=== PATIENT | male | born 1990 | race Caucasian/White ===

== ENCOUNTER → 2017-11-06 | Outpatient (CLI) | payer OTHER ==
--- NOTE | 2017-11-06 22:55 | MR ---
EXAMINATION TYPE: MR lumbar spine wo con DATE OF EXAM: 11/06/2017 COMPARISON: CT lumbar spine June 23, 2015 HISTORY: Low back pain, intervertebral disc degeneration, generalized muscle weakness, HNP L4-L5, and left lower extremity radiculopathy per order. Pain into hip for 8 years per patient. TECHNIQUE: Multiplanar, multisequence imaging of the lumbar spine is performed without IV contrast. FINDINGS: Sagittal images of the lumbar spine show vertebral body heights and alignment to appear sat isfactory. There is disc desiccation L4-L5 level. There is mild disc space narrowing at L3-L4 and L4 -L5 levels with posterior disc herniations mildly effacing the anterior thecal sac on the sagittal im ages. Increased signal posteriorly consistent with annular tear is noted at these levels. The conus m edullaris and somewhat high at roughly T11-T12 disc space level. No suspicious signal or clumping of lumbosacral nerve roots is seen. The bone marrow signal intensity is within normal limits. No suspic ious spurring is noted. Axial images show the T12-L1, L1-L2, and L2-L3 levels all to appear within normal limits. Axial images at the L3-L4 level broad-based left paracentral disc protrusion effacing the anterior th ecal sac, bilateral neural foramina are patent on axial image 13. Axial images at L4-L5 level shows broad-based left paracentral disc protrusion effacing anterior thec al sac. Bilateral neural foramina are patent Axial images at L5-S1 level are felt within normal limits. No suspicious retroperitoneal findings are seen. IMPRESSION: Degenerative changes L3-L4 and L4-L5 level as detailed above.
== END | disposition home or self-care (01) ==
LOC: RADMRIMAIN 21:23
PROVIDERS: ATTEND Orthopaedic Surgery Orthopaedic Surgery of the Spine
DX: M47.26 Other spondylosis with radiculopathy, lumbar region (principal)
CPT/HCPCS: 72148

== ENCOUNTER → 2017-12-27 | Outpatient (CLI) | payer OTHER ==
[2017-12-25 16:17] VITALS: BMI 26.4
[2017-12-27 13:45] VITALS: BP 106/58; PULSE 58; RESP 18
--- NOTE | 2017-12-27 14:03 | P.CONS ---
History of Present Illness - Reason for Consult Consult date: 12/27/17 - Chief Complaint Lower back and left leg pain - History of Present Illness This is a 27-year-old gentleman with history of chronic lower back pain that started since he was in high school however about 2 months ago he fell on his back and exacerbated his back pain that started to radiate down the left leg to the left foot with numbness and tingling in the left foot on the lateral aspect of the foot. He also feels some weakness in the left leg but he denies any bowel or bladder dysfunction. This pain gets worse by sitting for too long as for driving and with walking. The patient is getting physical therapy at this point but with no good results. He was seen by a neurosurgeon who recommended injections in his back. His lumbar spine MRI showed left paracentral disc protrusion at the L4 5 and L3 4 levels with neural foraminal stenosis. Review of Systems Cardiovascular: Denies chest pain, Denies shortness of breath Respiratory: Denies cough Gastrointestinal: Denies abdominal pain, Denies diarrhea, Denies nausea, Denies vomiting Musculoskeletal: Reports as per HPI Neurological: Reports as per HPI Past Medical History Past Medical History: No Reported History Additional Past Medical History / Comment(s): pain lower back radiating left side, radiating pain and N/T left leg,steroids Oct 2017 History of Any Multi-Drug Resistant Organisms: None Reported Past Surgical History: Orthopedic Surgery Additional Past Surgical History / Comment(s): hydrocele Past Anesthesia/Blood Transfusion Reactions: No Reported Reaction Smoking Status: Current every day smoker - Past Family History Mother Family Medical History: No Reported History Medications and Allergies Home Medications Medication Instructions Recorded Confirmed Type FLUoxetine HCL [PROzac] 10 mg PO QAM 12/25/17 12/27/17 History [place] Carbonate 300 mg PO TID 12/25/17 12/27/17 History chlordiazePOXIDE HCl [Librium] 10 mg PO BID 12/25/17 12/27/17 History chlorproMAZINE HCL [Thorazine] 50 mg PO TID 12/25/17 12/27/17 History traZODone HCL 50 - 100 mg PO HS PRN 12/25/17 12/27/17 History Allergies Allergy/AdvReac Type Severity Reaction Status Date / Time No Known Allergies Allergy Verified 12/27/17 13:34 Physical Exam Vitals: Vital Signs Pulse Resp BP Pulse Ox 12/27/17 13:36 58 L 18 106/58 97 - Constitutional General appearance: average body habitus - EENT Eyes: PERRLA - Respiratory Respiratory: bilateral: CTA - Cardiovascular Rhythm: regular Heart sounds: normal: S1, S2 - Integumentary Integumentary: no calor, no cellulitis, no cyanotic, no decreased turgor, no flushed, no jaundiced, no normal, no normal turgor, no pale, no rash, no ulcer - Neurologic Neuro exam of the lower extremities showed increased muscle strength in the left leg for knee flexion and extension and ankle flexion and extension to 4 out of 5. He has normal and symmetrical deep tendon reflexes bilaterally. He has mild tenderness in the lumbar paravertebral area on the right side. Straight leg raising test positive on the left side. Neurologic: CNII-XII intact - Musculoskeletal He has antalgic gait - Psychiatric Psychiatric: A&O x's 3, appropriate affect, intact judgment & insight Assessment and Plan Plan: This is a 27-year-old gentleman with what seems to be left lumbar radiculopathy with mild weakness in the left lower extremity and paresthesia. The patient has disc bulging at L3 4 and L4 5 levels with neural foraminal stenosis as per the last MRI he had on his lumbar spine. He failed to respond to physical therapy. I think he might benefit from getting lumbar epidural steroid injection at the L4 5 level in the left paramedian approach under fluoroscopic guidance. The procedure was explained to the patient and his questions were answered. Of note the patient uses medical marijuana twice a day for his diagnosis of bipolar disease.
== END ==
LOC: PNWHC3 13:23
PROVIDERS: ATTEND Anesthesiology
DX: G89.29 Other chronic pain (principal); M54.5 Low back pain; M99.73 Connective tissue and disc stenosis of intervertebral foramina of lumbar region; M51.26 Other intervertebral disc displacement, lumbar region; F31.9 Bipolar disorder, unspecified; F12.929 Cannabis use, unspecified with intoxication, unspecified; Z98.890 Other specified postprocedural states; F17.200 Nicotine dependence, unspecified, uncomplicated; Z79.899 Other long term (current) drug therapy
CPT/HCPCS: 99211

== ENCOUNTER → 2018-01-17 | Day surgery (SDC) | payer OTHER ==
[2018-01-11 15:25] VITALS: BMI 26.4
[~2018-01-17] MED LIST: SODIUM CHLORIDE 0.9% 500 ML 500 ML IV ONE; SODIUM CHLORIDE 0.9% 500 ML 500 ML IV SCH
[2018-01-17 07:31] VITALS: TEMP 98.1
--- NOTE | 2018-01-17 09:08 | P.PCN ---
Date of Procedure: 01/17/18 Surgeon: Ruap Holloway Pathology: none sent Condition: stable Disposition: PACU Description of Procedure: PREOPERATIVE DIAGNOSIS: 1-Lumbar radiculopathy POSTOPERATIVE DIAGNOSIS: 1-Lumbar radiculopathy. PROCEDURE 1. Lumbar epidural steroid injection under fluoroscopic guidance at the L4-5 level in the left paramedian approach. 2. Lumbar epidurogram. ANESTHESIA: Local with 1% lidocaine; and IV moderate conscious sedation with Versed and fentanyl EBL: Minimal PROCEDURE INDICATION: The patient with low back pain and radiculitis symptoms unresponsive to conservative treatment. Fluoroscopy was used to optimize visualization of the needle placement and to maximize safety. PROCEDURE DESCRIPTION / TECHNIQUE: The patient was seen and identified in the preoperative area. Risks, benefits , complications including but not limited to infections ,bleeding ,allergic reaction to the medications ,nerve damage and not complete pain relief , and alternatives were discussed with the patient. The patient agreed to proceed with the procedure and signed the consent. IV was started, and vital signs were stable. Patient was taken to the OR and time out was completed. The patient was placed in the prone position on procedure table and a pillow was placed under the abdomen to reduce lumbar lordosis. The lumbosacral area was prepped and draped in the usual sterile fashion with ChloraPrep.Patient was closely monitored during the procedure. Conscious sedation was used during the procedure to decrease patients anxiety. Vital signs were monitered during the entire procedure. Using anterior-posterior fluoroscopy, the L4-5 interlaminar space was identified and the skin over this site was marked and then infiltrated with 1% lidocaine subcutaneously. Subsequently, a 20-gauge Tuohy epidural needle was inserted and advanced toward the epidural space in the left paramedian approach using the Loss of resistance to air technique and guided by AP and lateral fluoroscopy. The correct needle position in the epidural space was verified with the injection of 1 mL of the water soluble contrast dye Omnipaque 180 contrast and observing an excellent epidurogram with the epidural spread of the dye, after negative aspiration for blood and CSF and in the absence of paresthesias. Again after negative aspiration, a 8 ml mixture containing 80 mg of Kenalog and 5 ml of preservative free Normal Saline, and 2 ml of preservative free ropivacaine 0.5% solution was injected and a washout of epidurogram was seen. Needle was withdrawn intact, skin was cleansed, and bandages were applied. patient tolerated procedure well and was transferred to PACU in stable condition. COMPLICATIONS: None
[2018-01-17 10:12] VITALS: BP 130/75; PULSE 47; RESP 20
--- NOTE | 2018-01-17 13:31 | FL ---
Fluoroscopy HISTORY: Pain 7 seconds fluoroscopy time supplied to the referring clinician. 2 intraoperative C-arm images docume nt the procedure. See dictated report from anesthesia.
== END ==
LOC: ORPAIN 07:09
PROVIDERS: ATTEND Anesthesiology
DX: M54.16 Radiculopathy, lumbar region (principal)
CPT/HCPCS: 62323; J2250; J3301; J3010; Q9966

== ENCOUNTER 2018-02-06 07:03 | Day surgery (SDC) | payer OTHER ==
[2018-02-02 12:26] VITALS: BMI 26.4
[~2018-02-06 07:03] MED LIST changes: -SODIUM CHLORIDE 0.9% 500 ML 500 ML IV ONE
[2018-02-06 08:02] VITALS: RESP 16; TEMP 98.1
[2018-02-06] MEDS ORDERED: LACTATED RINGERS 1,000 ML IV ONE (08:08)
--- NOTE | 2018-02-06 09:13 | P.PCN ---
Pathology: none sent Condition: stable Disposition: PACU Description of Procedure: PREOPERATIVE DIAGNOSIS: 1-Lumbar radiculopathy POSTOPERATIVE DIAGNOSIS: 1-Lumbar radiculopathy. PROCEDURE 1. Lumbar epidural steroid injection under fluoroscopic guidance at the L4-5 level in the left paramedian approach. 2. Lumbar epidurogram. ANESTHESIA: Local with 1% lidocaine; and IV moderate conscious sedation with Versed and fentanyl EBL: Minimal PROCEDURE INDICATION: The patient with low back pain and radiculitis symptoms unresponsive to conservative treatment. Fluoroscopy was used to optimize visualization of the needle placement and to maximize safety. PROCEDURE DESCRIPTION / TECHNIQUE: The patient was seen and identified in the preoperative area. Risks, benefits , complications including but not limited to infections ,bleeding ,allergic reaction to the medications ,nerve damage and not complete pain relief , and alternatives were discussed with the patient. The patient agreed to proceed with the procedure and signed the consent. IV was started, and vital signs were stable. Patient was taken to the OR and time out was completed. The patient was placed in the prone position on procedure table and a pillow was placed under the abdomen to reduce lumbar lordosis. The lumbosacral area was prepped and draped in the usual sterile fashion with ChloraPrep.Patient was closely monitored during the procedure. Conscious sedation was used during the procedure to decrease patients anxiety. Vital signs were monitered during the entire procedure. Using anterior-posterior fluoroscopy, the L4-5 interlaminar space was identified and the skin over this site was marked and then infiltrated with 1% lidocaine subcutaneously. Subsequently, a 20-gauge Tuohy epidural needle was inserted and advanced toward the epidural space in the left paramedian approach using the Loss of resistance to air technique and guided by AP and lateral fluoroscopy. The correct needle position in the epidural space was verified with the injection of 1 mL of the water soluble contrast dye Omnipaque 180 contrast and observing an excellent epidurogram with the epidural spread of the dye, after negative aspiration for blood and CSF and in the absence of paresthesias. Again after negative aspiration, a 8 ml mixture containing 40 mg of Kenalog and 5 ml of preservative free Normal Saline, and 2 ml of preservative free ropivacaine 0.5% solution was injected and a washout of epidurogram was seen. Needle was withdrawn intact, skin was cleansed, and bandages were applied. patient tolerated procedure well and was transferred to PACU in stable condition. COMPLICATIONS: None
[2018-02-06] MEDS ORDERED: IV FLUID CONTINUATION 600 ML IV ONE (09:17)
[2018-02-06 09:35] VITALS: BP 107/65; PULSE 56
--- NOTE | 2018-02-06 10:35 | FL ---
Fluoroscopy INDICATION: Pain FINDINGS: Fluoroscopy time: 5 seconds. Images obtained: 2. IMPRESSIONS: 1. Documentation of fluoroscopy.
== END 2018-02-06 09:47 | disposition home or self-care (01) ==
LOC: ORPAIN 07:03
PROVIDERS: ATTEND Anesthesiology
DX: M54.16 Radiculopathy, lumbar region (principal)
CPT/HCPCS: 62323; J2250; J3301; J3010; Q9966

== ENCOUNTER 2018-03-29 08:22 | Day surgery (SDC) | payer OTHER ==
[2018-03-28 09:42] VITALS: BMI 25.7
[2018-03-29 09:04] VITALS: TEMP 97.9
[2018-03-29] MEDS ORDERED: LIDOCAINE 1% 20 ML VIAL (10MG/ML) FOR IV START INTRADERMA ONE (09:04)
[2018-03-29] MEDS ORDERED: LACTATED RINGERS 1,000 ML IV ONE (09:04)
--- NOTE | 2018-03-29 10:13 | P.PCN ---
Date of Procedure: 03/29/18 Procedure(s) Performed: PREOPERATIVE DIAGNOSIS : 1- Lumbar spondylosis with Facet Arthropathy without myelopathy . 2- Lumber degenerative disc disease. 3-lumbar radiculopathy POSTOPERATIVE DIAGNOSIS: 1- Lumbar spondylosis with Facet Arthropathy without myelopathy . 2- Lumber degenerative disc disease 3-lumbar radiculopathy. PROCEDURE: Diagnostic bilateral L3 -4 , L4 -5 , and L5-S1 medial branch block under fluoroscopy ANESTHESIA: Local with Ropivacain 0.5 % 6 ml , moderate sedation with intravenous Versed 2 mg and Fentanyl 100 mcg. EBL: Minimal COMPLICATION: None. IV FLUIDS: 100 mL of normal saline. PROCEDURE INDICATION: Chronic low back pain secondary to Facet arthropathy unresponsive to conservative treatment. PROCEDURE DESCRIPTION: the patient was seen and identified in the preop holding area , risks and benefits and possible complications of the procedure and alternative were discussed with the patient, and the patient agreed to proceed with the procedure and signed the consent IV was started and vital signs monitored during the procedure and fluoroscopy was used to maximize the benefit and accuracy of the needle placement, and sedation was given to decrease patient anxiety, patient was taken to the procedure room and placed in prone position vital signs monitored in the back prepped with chlorhexidine X3 then under strict sterile technique using a right oblique fluoroscopy ,the junction of the transverse process and the superior articulating process of the right L3- 4 , L4- 5, and L5-S1 vertebra which corresponding to the fluoroscopy image of the eye of the Evans dog on the block side for the medial branches and subsequently , after local infiltration of skin and subcu tissuies with Ropivacaine 0.5 % , one mL at each level , then 25-gauge Quincke-type needles , 3 needle was used , each one of them placed at the junction of the base of the transverse process and the superior articular process at the appropriate level, and the needle was advanced until the periosteum contacted, needle placement confirmed with AP oblique and lateral view and after appropriate needle placement confirmed, and after negative aspiration for heme and CSF and there was no paresthesia 1-1/2 mL of Ropivacaine 0.5% mixed with 20 mg Depo-Medrol , then half mL injected at each level after negative aspiration the needle subsequently removed and the same procedure repeated for the left side at left side at L3-4, L4- 5 and L5-S1 levels. At the end of the procedure and the needles removed and a bandage applied after the skin was cleaned the cleaning solution patient taken to recovery room in stable condition and monitors in the recovery room for 20-30 minutes and discharged home in stable condition after discharge criteria met and patient will follow up with the pain clinic in 2-4 weeks
[2018-03-29] MEDS ORDERED: IV FLUID CONTINUATION 1,000 ML IV ONE (10:20)
[2018-03-29 10:29] VITALS: RESP 18
[2018-03-29 10:40] VITALS: BP 133/76; PULSE 42
--- NOTE | 2018-03-29 12:43 | FL ---
EXAMINATION TYPE: FL guided pain mgmt statistic DATE OF EXAM: 03/29/2018 FLUOROSCOPY Fluoroscopy time of 8 seconds was used during bilateral lumbar facet blocks. 4 image/s document/s th e procedure.
== END 2018-03-29 10:55 | disposition home or self-care (01) ==
LOC: ORPAIN 08:22
PROVIDERS: ATTEND Specialist
DX: G89.29 Other chronic pain (principal); M47.26 Other spondylosis with radiculopathy, lumbar region; M51.16 Intervertebral disc disorders with radiculopathy, lumbar region
CPT/HCPCS: 64493; 64494; 64495; J2250; J1030; J3010; 99152

== ENCOUNTER 2018-04-12 08:12 | Day surgery (SDC) | payer OTHER ==
[2018-04-11 09:32] VITALS: BMI 25.0
[2018-04-12 09:21] VITALS: TEMP 97.7
[2018-04-12] MEDS ORDERED: LACTATED RINGERS 1,000 ML IV ONE (09:32)
--- NOTE | 2018-04-12 10:34 | P.PCN ---
Date of Procedure: 04/12/18 Surgeon: Rupa Holloway Pathology: none sent Condition: stable Disposition: PACU Description of Procedure: PREOPERATIVE DIAGNOSIS : 1- Lumbar spondylosis with Facet Arthropathy without myelopathy . 2- Lumber degenerative disc disease POSTOPERATIVE DIAGNOSIS: 1- Lumbar spondylosis with Facet Arthropathy without myelopathy . 2- Lumber degenerative disc disease PROCEDURE: Diagnostic bilateral L3 -4 , L4 -5 , and L5-S1 medial branch block under fluoroscopy ANESTHESIA: Local with 1% lidocaine; IV moderate conscious sedation with Versed 2 mg . EBL: Negligible COMPLICATION: None. PROCEDURE INDICATION: Chronic low back pain secondary to Facet arthropathy unresponsive to conservative treatment. PROCEDURE DESCRIPTION: the patient was seen and identified in the preop holding area , risks and benefits and possible complications of the procedure and alternatives were discussed with the patient, and the patient agreed to proceed with the procedure and signed the consent. IV was started and vital signs monitored during the procedure and fluoroscopy was used to maximize the benefit and accuracy of the needle placement, sedation was given to decrease patient anxiety, patient was taken to the procedure room and placed in prone position vital signs monitored. The patient was brought into the procedure room and placed in prone position. Skin was prepped with Chloraprep and draped in a sterile manner. Lidocaine 1 % was used to numb the skin up at the target points that were chosen as follows : at the L5-S1 level which corresponds to the dorsal ramus of L5 the target points were at the superior medial aspect of the sacral ala on each side of the spine on the AP view of fluoroscopy, and for theL2, L3 and L4 medial branches the target points were the connection between the transverse process and the superior to go process of L3, L4 and L5 respectively on the oblique views of fluoroscopy. I used 25-gauge 3-1/2 inch Quincke spinal needles for this procedure and after contacting bone at the target points mentioned above I injected 1 mL of a mixture of Kenalog 40 mg +5 MLS of Marcaine 0.5% PF . Patient tolerated procedure well. At the end of the procedure the needles removed and a bandage applied after the skin was cleaned the cleaning solution. patient was then taken to the recovery room in stable condition and monitored in the recovery room for 20-30 minutes and discharged home in stable condition after discharge criteria met .
[2018-04-12] MEDS ORDERED: IV FLUID CONTINUATION 1,000 ML IV ONE (10:37)
--- NOTE | 2018-04-12 10:45 | FL ---
EXAMINATION TYPE: FL guided pain mgmt statistic DATE OF EXAM: 04/12/2018 CLINICAL HISTORY: Low back pain. TECHNIQUE: Fluoroscopy. COMPARISON: None. FINDINGS: Fluoroscopic guidance was provided during pain relief procedure performed by Dr. Wisdom. A total of 9 seconds of fluoroscopic time was utilized during the procedure and two spot images are ac quired. Images acquired shows needle localization at multiple levels of the lumbar spine. IMPRESSION: As Above.
[2018-04-12 10:46] VITALS: BP 134/79
[2018-04-12 10:53] VITALS: PULSE 62; RESP 18
== END 2018-04-12 11:01 | disposition home or self-care (01) ==
LOC: ORPAIN 08:12
PROVIDERS: ATTEND Anesthesiology
DX: G89.29 Other chronic pain (principal); M47.816 Spondylosis without myelopathy or radiculopathy, lumbar region; M51.36 Other intervertebral disc degeneration, lumbar region
CPT/HCPCS: 64493; 64494; 64495; J2250; J3301; J3010; 99152

== ENCOUNTER → 2018-04-30 | Outpatient (CLI) | payer OTHER ==
[2018-04-30 15:09] VITALS: BP 124/81; PULSE 81; RESP 16
--- NOTE | 2018-05-01 07:09 | P.PAINPG ---
Subjective Progress Note Date: 04/30/18 This is a follow-up visit for this 27-year-old male with a chronic history of severe low back pain, he is diagnosed with a lumbar radiculopathy, lumbar spondylosis with lumbar facet arthropathy, recently we have done diagnostic medial branch block lumbar area at L34 /L4 5/L5-S1, on 2 different occasions , he reported that his pain level was 9-10 over 10 before the first diagnostic block under dropped to 3/10 after the block, and he gets similar results after the second diagnostic block, the pain relief was for short-term, patient currently continued to have severe low back pain, he denies any motor or sensory deficit he denies any fever or night sweats, he denies any change in the bowel movement or urination Objective - Vital Signs Vital signs: Vital Signs Temp Pulse 81 04/30/18 15:05 Resp 16 04/30/18 15:05 BP 124/81 04/30/18 15:05 Pulse Ox Intake & Output 04/30/18 05/01/18 05/01/18 18:59 06:59 18:59 Weight 81.647 kg - Exam Physical Examinations : -Constitutiona : Cooperative , not in acute distress . -HEENT : nech ; supple , no Lymphadenopathy , normal thyroid size . eyes : no ptosis , no icterus, no photophobia . ENT : normal of hearing , normal oropharynx , no Thrush . - Respiratory : Chest clear to auscultations Bilaterally , no wheezing , no Rhonchi . - Cardiovascula : regular rate and rhythem , S1 , S2 , no S3 , no S4. - Gastrointestina : abdomen soft no tenderness , bowel sounds , no organomegally . - Genitourinary : Defferred . - neurologic : Cranial nerve II to XII intact , no focal neurological deffecit . -psychatric : alert , oriented X 3 , appropriate affect , intact judgment and insight . -Lymphatic : no Lymphadenopathy . - musculoskeltal : Lumber spine moter stegnth lower extremities ,thigh and legs 5/5 Right side , 5/5 Left side deep tendon reflexes : normal Knee Jerk , normal ankle Jerk positive lumber facet Loading Test Assessment and Plan Plan: Assessment and plan= chronic severe low back pain secondary to lumbar spondylosis with facet arthropathy without myelopathy Patient had a good result after the diagnostic medial branch block x2 , he will be good candidate to have radiofrequency ablation of the medial branch lumbar area, He will be scheduled to have radiofrequency ablation of the left side medial branch L34 /L4 5/L5-S1 , and later on when to the right side Procedure risk and benefit and alternatives discussed with the patient he agreed with proceeding Time with Patient: Less than 30 PQRS Measure Charge Sheet Measure #130: Documentation of Current Meds in Medical Chart: Patient's medications documented in chart Measure #226: Tobacco Use: Screen & Cessation Intervention: Pt screened for tobacco use AND intervention given Measure #111: Pneumonia Vaccination: Pneumococcal vaccine administered or previously received Measure #47: Advance Care Plan: Advance care planning discussed & documented, pt chose/unable to give Measure #412: Opioid Treatment Agreement: No documentation of signed opioid treatment agreement Measure #408: Opioid Therapy Follow-up Evaluation: Patient had NO f/u eval minimum every 3 months during opioid therapy Measure #317: Preventitive Care & Scrn High Bld Press & F/U: Normal blood pressure, f/u not required Measure #128: Body Mass Index (BMI) Screening & Follow-up: BMI documented within normal parameters Measure #131: Pain Assessment & Follow-up: Pain positive & plan documented, Follow-up scheduled Measure #431: Unhealthy Alcohol Use Preventative Care & Scrn: Patient not identified as an unhealthy alcohol user PQRS Narrative: Smoking Status Current every day smoker Blood Pressure 124/81 Pain Intensity [Lower Back] 10 Scale Used Numeric (1 - 10) Hx Alcohol Use (MH) No Home Medications: Ambulatory Orders [place] Carbonate 300 mg PO TID 12/25/17 chlorproMAZINE HCL [Thorazine] 50 mg PO TID 12/25/17 traZODone HCL 50 - 100 mg PO HS PRN 12/25/17 Venlafaxine HCl [Effexor] 75 mg PO DAILY 03/20/18 Controlled Substance Measures - Controlled Substance Measures Is patient prescribed a controlled substance at discharge?: No
== END ==
LOC: PNWHC3 13:59
PROVIDERS: ATTEND Specialist
DX: G89.29 Other chronic pain (principal); M47.816 Spondylosis without myelopathy or radiculopathy, lumbar region; M46.96 Unspecified inflammatory spondylopathy, lumbar region; F17.200 Nicotine dependence, unspecified, uncomplicated; Z79.899 Other long term (current) drug therapy
CPT/HCPCS: 99211

== ENCOUNTER 2018-05-16 08:13 | Day surgery (SDC) | payer OTHER ==
[2018-05-11 13:14] VITALS: BMI 24.8
[2018-05-16 08:59] VITALS: TEMP 97.9
[2018-05-16] MEDS ORDERED: LACTATED RINGERS 1,000 ML IV ONE ×2 (08:59)
--- NOTE | 2018-05-16 09:57 | P.PCN ---
Date of Procedure: 05/16/18 Surgeon: Rupa Holloway Pathology: none sent Condition: stable Disposition: PACU Description of Procedure: PREOPERATIVE DIAGNOSIS: Lumbar spondylosis without myelopathy, morbid obesity POSTOPERATIVE DIAGNOSIS: Lumbar spondylosis without myelopathy,morbid obesity PROCEDURES :Left Radiofrequency thermocoagulation L3-L4, L4-L5, and L5-S1 medial branch, with fluoroscopic guidance ANESTHESIA: IV moderate conscious sedation with versed and fentanyl and local infiltration with lidocaine 1% 5 ml EBL: Minimal PROCEDURE INDICATION: The patient with low back pain secondary to lumbar facet arthropathy who had more than 50% relief of her pain with previous diagnostic lumbar medial branch block with bupivacaine. PROCEDURE DESCRIPTION / TECHNIQUE: The patient was seen and identified in the preoperative area. Risks, benefits, complications, including but not limited to risk of infection ,bleeding , allergic reactions to the medications and no complete pain relief , and alternatives were discussed with the patient, the patient agreed to proceed with the procedure and signed the consent. IV was started. Vital signs remained stable throughout the procedure. Patient was taken to the OR and time out was completed. The patient was placed in the prone position on the procedure table. The lumber area was prepped and draped in the usual sterile fashion. . Vital signs were closely monitored during the procedure .IV sedation was used during the procedure to decrease patients anxiety. The target points were identified as follows: For the L5-S1 level which corresponds to the dorsal ramus of L5 the target point was at the superior medial aspect of the sacral ala on the left side of the spine on the AP view of fluoroscopy and for the L3, and L4 medial branches the target points were at the connection between the transverse process and the superior articular process of L4, and L5 vertebra respectively on the left oblique view of fluoroscopy. skin was marked, and localized with 1% lidocaineat these points. Subsequently, an 18 [id number] radiofrequency needles with a 10-mm curved active tips were advanced guided by fluoroscopy to each of the target points mentioned above in a superior medial direction to get the active tips as parallel as possible to the medial branches tracks. AP, oblique, and lateral views of fluoroscopy were used to verify needle tips position. Each level then underwent motor testing at 2.5 Hz and 0 to 3 volt with local stimulation, but no radicular symptoms down the legs. Thereafter radiofrequency thermocoagulation at 80 degrees celsius for 90 seconds after injecting 1 ml of PF Marcaine 0.5%(3 mls) with 40 mg of Kenalog. At the end of the procedure, the skin was cleansed and bandages were applied. COMPLICATIONS: No acute complications. DISPOSITION / PLANS: The patient was placed in a supine position and transferred to the recovery area in a stable condition for observation and was discharged from the recovery room after meeting discharge criteria. Home discharge instructions given to the patient by the staff. The patient was reexamined prior to discharge.
[2018-05-16] MEDS ORDERED: IV FLUID CONTINUATION 1,000 ML IV ONE ×2 (10:04)
[2018-05-16 10:07] VITALS: PULSE 50; RESP 16
[2018-05-16 10:20] VITALS: BP 135/79
--- NOTE | 2018-05-16 10:41 | FL ---
EXAMINATION TYPE: FL guided pain mgmt statistic DATE OF EXAM: 05/16/2018 CLINICAL HISTORY: Low back pain. TECHNIQUE: Fluoroscopy. COMPARISON: None. FINDINGS: Fluoroscopic guidance was provided during pain relief procedure performed by Dr. Holloway . A total of 13 seconds of fluoroscopic time was utilized during the procedure and 3 spot images are acquired. Images acquired shows needle localization at several levels in the lower lumbar spine and upper sacrum. IMPRESSION: As Above.
== END 2018-05-16 10:34 | disposition home or self-care (01) ==
LOC: ORPAIN 08:13
PROVIDERS: ATTEND Anesthesiology
DX: G89.29 Other chronic pain (principal); M47.26 Other spondylosis with radiculopathy, lumbar region; F17.200 Nicotine dependence, unspecified, uncomplicated; Z79.899 Other long term (current) drug therapy
CPT/HCPCS: 64635; 64636 ×2; J2250; J3301; J3010; 99152

== ENCOUNTER 2018-05-31 09:48 | Day surgery (SDC) | payer OTHER ==
[2018-05-29 12:32] VITALS: BMI 24.4
[2018-05-31 10:21] VITALS: TEMP 98.3
[2018-05-31] MEDS ORDERED: LACTATED RINGERS 1,000 ML IV ONE (10:22)
--- NOTE | 2018-05-31 10:29 | P.PCN ---
Date of Procedure: 05/31/18 Description of Procedure: PREOPERATIVE DIAGNOSIS: Lumbar Facet Arthropathy. POSTOPERATIVE DIAGNOSIS: Lumbar Facet Arthropathy. PROCEDURES : Right Radiofrequency thermocoagulation, L3, L4, and L5 medial branch, with fluoroscopic guidance ANESTHESIA: IV sedation with versed and fentanyl and local infiltration with lidocaine 1% 10 ml EBL: Minimal PROCEDURE INDICATION: The patient with low back pain secondary to lumbar facet arthropathy who had more than 50% relief of pain with previous diagnostic lumbar medial branch block with local anesthetic. PROCEDURE DESCRIPTION / TECHNIQUE: The patient was seen and identified in the preoperative area. Risks, benefits, complications, including but not limited to risk of infection ,bleeding , allergic reactions to the medications and no complete pain relief , and alternatives were discussed with the patient, the patient agreed to proceed with the procedure and signed the consent. IV was started. Vital signs remained stable throughout the procedure. Patient was taken to the OR and time out was completed. The patient was placed in the prone position on the procedure table. The lumber area was prepped and draped in the usual sterile fashion. . Vital signs were closely monitored during the procedure .IV sedation was used during the procedure to decrease patient anxiety. Using AP and then oblique fluoroscopy, the eye of the Evans dog corresponding to the connection between the superior and transverse articular processes of right L3, L4, and L5 were identified, marked, and localized with 1% lidocaine. Subsequently, a 20 -lf radiofrequency cannula with a 10-mm active tip was advanced guided by fluoroscopy to each of the eyes of the Evans dog at L3, L4, and L5. Each site then underwent sensory testing at 50 Hz and 0 to 1 volt and motor testing at 2.5 Hz and 0 to 3 volt with local stimulation, but no radicular symptoms down the legs. Thereafter the L3, L4, and L5 sites underwent radiofrequency thermocoagulation at 80 degrees celsius for 90 seconds after injecting 0.5 ml of PF lidocaine 1%. Then after the thermocoagulation was done , 1 ml of the block solution containing marcaine 0.5% was injected at the right L3 , L4 , and L5, levels after negative aspiration of CSF and blood and with no paresthesias. Cannulas were retracted. At the end of the procedure, the skin was cleansed and bandages were applied. COMPLICATIONS: No acute complications. DISPOSITION / PLANS: The patient was placed in a supine position and transferred to the recovery area in a stable condition for observation and was discharged from the recovery room after meeting discharge criteria. Home discharge instructions given to the patient by the staff. The patient was reexamined prior to discharge. Follow-up in 4 weeks in the clinic
[2018-05-31] MEDS ORDERED: IV FLUID CONTINUATION 1,000 ML IV ONE (10:53)
[2018-05-31 11:08] VITALS: BP 130/70; PULSE 80; RESP 18
--- NOTE | 2018-05-31 14:15 | FL ---
Fluoroscopy HISTORY: Pain 4 seconds fluoroscopy time supplied to the referring clinician. 1 intraoperative C-arm image documen ts the procedure. See dictated report from anesthesia.
--- NOTE | 2018-06-05 11:32 | CDI ---
Date: 06/05/18 CDS/Senior Clinical Study Manager Name: Lisa Campbell Phone: If any questions, call Ivelisse Esquivel Cable Operator at [phone] Patient Name: Robbin Beverly Admit Date: 05/31/18 Discharge Date: 05/31/18 ATTENTION: The [facility] Coding Staff appreciate your assistance in clarifying documentation. Please respond to the clarification below the line at the bottom and electronically sign. The [facility] Coding staff will review the response and follow-up if needed. Please note: Queries are made part of the Legal Health Record. If you have any questions, please contact the Cable Operator. Dear Dr. Schwartz, Please provide clarification as to the type of sedation provided. OP report states Versed and Fentanyl were used. On the Pain Procedure Record under Anesthesia Plan, nothing is checked. Please clarify if MAC/unconscious sedation or Moderate/ conscious sedation was provided. Thank you for your kind consideration. MTDD
== END 2018-05-31 11:13 | disposition home or self-care (01) ==
LOC: ORPAIN 09:48
PROVIDERS: ATTEND Hospitalist
DX: G89.29 Other chronic pain (principal); M47.26 Other spondylosis with radiculopathy, lumbar region; F17.200 Nicotine dependence, unspecified, uncomplicated; Z79.899 Other long term (current) drug therapy
CPT/HCPCS: 64635; 64636; J2250; J2001; J3010; 99152

== ENCOUNTER → 2018-06-14 | Outpatient (CLI) | payer OTHER ==
[2018-06-14 14:18] VITALS: BP 145/91; PULSE 76; RESP 16
--- NOTE | 2018-06-14 14:44 | P.PN ---
Subjective Progress Note Date: 06/14/18 This is a follow-up visit for this 27-year-old male with a chronic history of severe low back pain, he is diagnosed with a lumbar radiculopathy, lumbar spondylosis with lumbar facet arthropathy, recently we have done radiofrequency ablation of the medial branch lumbar area , currently is complaining of severe bilateral buttock pain mainly on the left side,, he denies any motor or sensory deficit he denies any fever or night sweats, he denies any change in the bowel movement or urination Physical Examinations : -Constitutiona : Cooperative , not in acute distress . -HEENT : nech ; supple , no Lymphadenopathy , normal thyroid size . eyes : no ptosis , no icterus, no photophobia . - neurologic : Cranial nerve II to XII intact , no focal neurological deffecit . -psychatric : alert , oriented X 3 , appropriate affect , intact judgment and insight . -Lymphatic : no Lymphadenopathy . - musculoskeltal : moter stegnth lower extremities ,thigh and legs 5/5 Right side , 5/5 Left side deep tendon reflexes : normal Knee Jerk , normal ankle Jerk positive lumber facet Loading Test Range of motion of the lumbar spine Flexion 30 degrees, extension 10 degrees strait leg raising test , positive at degree Fabere test positive RT and positive LT . mild tenderness over the Sacroiliac joint on the Right , severe tenderness Left sides Gaenslen test positive bilaterally. Seated flexion test positive bilaterally. Assessment and plan= chronic severe low back pain secondary to lumbar spondylosis with facet arthropathy without myelopathy, sacroiliitis Status post radiofrequency ablation of the medial branch lumbar area, Patient could benefit from left sacroiliac joint steroid injection under fluoroscopy guidance Patient could benefit from NSAID Mobic 7.5 mg twice a day. Time with Patient: Less than 30 PQRS Measure Charge Sheet Measure #130: Documentation of Current Meds in Medical Chart: Patient's medications documented in chart Measure #226: Tobacco Use: Screen & Cessation Intervention: Pt screened for tobacco use AND intervention given Measure #111: Pneumonia Vaccination: Pneumococcal vaccine administered or previously received Measure #47: Advance Care Plan: Advance care planning discussed & documented, pt chose/unable to give Measure #412: Opioid Treatment Agreement: No documentation of signed opioid treatment agreement Measure #408: Opioid Therapy Follow-up Evaluation: Patient had NO f/u eval minimum every 3 months during opioid therapy Measure #317: Preventitive Care & Scrn High Bld Press & F/U: blood pressure elevated 145/91 f/u with the primary care. Measure #128: Body Mass Index (BMI) Screening & Follow-up: BMI documented within normal parameters ( 25 ) Measure #131: Pain Assessment & Follow-up: Pain positive & plan documented, Follow-up scheduled Measure #431: Unhealthy Alcohol Use Preventative Care & Scrn: Patient not identified as an unhealthy alcohol user PQRS Narrative: Controlled Substance Measures - Controlled Substance Measures Is patient prescribed a controlled substance at discharge?: No Objective - Vital Signs Vital signs: Vital Signs Temp Pulse 76 06/14/18 14:11 Resp 16 06/14/18 14:11 BP 145/91 06/14/18 14:11 Pulse Ox 97 06/14/18 14:11 Intake & Output 06/13/18 06/14/18 06/14/18 18:59 06:59 18:59 Weight 83.915 kg
== END ==
LOC: PNWHC3 13:58
PROVIDERS: ATTEND Specialist
DX: G89.29 Other chronic pain (principal); M47.816 Spondylosis without myelopathy or radiculopathy, lumbar region; M46.96 Unspecified inflammatory spondylopathy, lumbar region; M46.1 Sacroiliitis, not elsewhere classified; Z98.890 Other specified postprocedural states; Z79.1 Long term (current) use of non-steroidal anti-inflammatories (NSAID)
CPT/HCPCS: 99211

== ENCOUNTER 2018-06-28 06:01 | Day surgery (SDC) | payer OTHER ==
[2018-06-25 16:07] VITALS: BMI 25.7
[~2018-06-28 06:01] MED LIST changes: +LACTATED RINGERS 1,000 ML IV SCH; -SODIUM CHLORIDE 0.9% 500 ML 500 ML IV SCH
[2018-06-28 06:27] VITALS: TEMP 97.9
--- NOTE | 2018-06-28 07:22 | P.PCN ---
Date of Procedure: 06/28/18 Surgeon: Rupa Holloway Pathology: none sent Condition: stable Disposition: PACU Description of Procedure: Preoperative diagnoses= sacroiliac joint dysfunction and sacroiliitis on the le ft side Postoperative diagnoses= same as preoperative diagnosis. Procedure= sacroiliac joint steroid injection under fluoroscopic guidance. Anesthesia= local anesthesia with lidocaine 1% and IV moderate conscious sedation with fentanyl and Versed Estimated blood loss=minimal. Procedure indication= the patient had a history of severe chronic low back pain, diagnosed with sacroiliitis and lumbar sacral facet arthropathy unresponsive to conservative treatment. Procedure description= the patient was seen and identified in the preoperative holding area, risks and benefits and alternative of the procedure and possible complications discussed with the patient, patient signed the consent. an IV was started, and vital signs were monitored and were stable throughout the pro cedure, patient was placed in the prone position or table and the lumbosacral area was prepped and draped with a sterile fashion, vital signs were closely monitored during the procedure.The sacroiliac joint was identified on the AP view of fluoroscopy then the C-arm was tilted to the contralateral(right) oblique position to superimpose the anterior and posterior joint lines on each other and to have a unified joint line with the target point at the inferior one third of this line. I used 22-gauge 3-1/2 inch Quincke spinal needle for this procedure and after getting into the sacroiliac joint I injected 40 mg of Kenalog +2 MLS of Ropivacaine 0.5%. Patient tolerated the procedure well without any complication, The patient returned to supine position after the back was cleaned and a Band- Aid applied, the patient transported to recovery room in stable condition and he was monitored for 30 minutes before he was discharged home and then patient was reexamined before going home and patient was discharged in stable condition and patient will follow up with the pain clinic in a few weeks
[2018-06-28] MEDS ORDERED: IV FLUID CONTINUATION 1,000 ML IV ONE (07:31)
[2018-06-28 07:33] VITALS: RESP 18
[2018-06-28 07:40] VITALS: BP 142/86; PULSE 60
--- NOTE | 2018-06-28 08:04 | FL ---
Fluoroscopy INDICATION: Pain FINDINGS: Fluoroscopy time: Not recorded seconds. Images obtained: 0. IMPRESSIONS: 1. Documentation of fluoroscopy by report.
== END 2018-06-28 07:52 | disposition home or self-care (01) ==
LOC: ORPAIN 06:01
PROVIDERS: ATTEND Anesthesiology
DX: G89.29 Other chronic pain (principal); M53.3 Sacrococcygeal disorders, not elsewhere classified; M46.1 Sacroiliitis, not elsewhere classified; F31.9 Bipolar disorder, unspecified
CPT/HCPCS: J2250; J3301; J3010; G0260; 27096

== ENCOUNTER → 2018-07-26 | Outpatient (CLI) | payer OTHER ==
[2018-07-26 14:14] VITALS: BP 133/86; PULSE 88; RESP 16
--- NOTE | 2018-07-26 15:12 | P.PN ---
Subjective Progress Note Date: 07/26/18 This is a follow-up visit for this 27-year-old male with a chronic history of severe low back pain, he is diagnosed with sacroiliitis, lumbar spondylosis with lumbar facet arthropathy, recently we have done RFA medial branch block lumbar area , recently we have done left-sided sacroiliac joint steroid injection , and he reported that he had good results after the sacroiliac joint steroid injection ,he denies any motor or sensory deficit he denies any fever or night sweats, he denies any change in the bowel movement or urination Physical Examinations : -Constitutiona : Cooperative , not in acute distress . -HEENT : nech ; supple , no Lymphadenopathy , normal thyroid size . eyes : no ptosis , no icterus, no photophobia . - neurologic : Cranial nerve II to XII intact , no focal neurological deffecit . -psychatric : alert , oriented X 3 , appropriate affect , intact judgment and insight . -Lymphatic : no Lymphadenopathy . - musculoskeltal : Lumber spine moter stegnth lower extremities ,thigh and legs 5/5 Right side , 5/5 Left side deep tendon reflexes : normal Knee Jerk , normal ankle Jerk positive lumber facet Loading Test Range of motion of the lumbar spine Flexion 30 degrees, extension 10 degrees strait leg raising test negative bilaterally Fabere test negative bilaterally Sever tenderness over the Sacroiliac joint on the Left sides Gaenslen test positive left side. Seated flexion test positive left side Assessment and plan= chronic severe low back pain secondary to lumbar spondylosis with facet arthropathy without myelopathy, left sacroiliitis Status post RFA of the medial branch lumbar area, and left sacroiliac joint steroid injection The patient could follow up in the pain clinic when necessary and if the pain came back he would be a good candidate to have a repeat left-sided sacroiliac joint steroid injection PQRS Measure Charge Sheet Measure #130: Documentation of Current Meds in Medical Chart: Patient's medications documented in chart Measure #226: Tobacco Use: Screen & Cessation Intervention: Pt screened for tobacco use AND intervention given Measure #111: Pneumonia Vaccination: Pneumococcal vaccine administered or previously received Measure #47: Advance Care Plan: Advance care planning discussed & documented, pt chose/unable to give Measure #412: Opioid Treatment Agreement: No documentation of signed opioid treatment agreement Measure #408: Opioid Therapy Follow-up Evaluation: Patient had NO f/u eval minimum every 3 months during opioid therapy Measure #317: Preventitive Care & Scrn High Bld Press & F/U: Normal blood pressure, f/u not required Measure #128: Body Mass Index (BMI) Screening & Follow-up: BMI documented within normal parameters Measure #131: Pain Assessment & Follow-up: Pain positive & plan documented, Follow-up scheduled Measure #431: Unhealthy Alcohol Use Preventative Care & Scrn: Patient not identified as an unhealthy alcohol us Objective - Vital Signs Vital signs: Vital Signs Temp Pulse 88 07/26/18 14:07 Resp 16 07/26/18 14:07 BP 133/86 07/26/18 14:07 Pulse Ox 97 07/26/18 14:07 Intake & Output 07/25/18 07/26/18 07/26/18 18:59 06:59 18:59 Weight 81.647 kg
== END ==
LOC: PNWHC3 13:55
PROVIDERS: ATTEND Specialist
DX: G89.29 Other chronic pain (principal); M47.816 Spondylosis without myelopathy or radiculopathy, lumbar region; M46.96 Unspecified inflammatory spondylopathy, lumbar region; M46.1 Sacroiliitis, not elsewhere classified; Z79.891 Long term (current) use of opiate analgesic; Z71.6 Tobacco abuse counseling
CPT/HCPCS: 99211

== ENCOUNTER → 2021-12-18 | Outpatient (CLI) | payer OTHER ==
--- NOTE | 2021-12-19 07:02 | MR ---
EXAMINATION TYPE: MR lumbar spine wo con DATE OF EXAM: 12/18/2021 COMPARISON: MRI lumbar spine November 06, 2017. CT lumbar spine October 13, 2021 HISTORY: Chronic low back pain into left hip, buttocks and lower extremity. Spondylosis with radiculo ora. TECHNIQUE: Multiplanar, multisequence imaging of the lumbar spine is performed without IV contrast. FINDINGS: Sagittal images of the lumbar spine show vertebral body heights and alignment to remain sat isfactory. There is disc desiccation L4-L5 level redemonstrated. New disc desiccation L3-L4 level. Th ere is mild to moderate disc space narrowing at L3-L4 and L4-L5 levels slightly progressed from prior MRI. Increased signal posteriorly consistent with annular tear is identified L4-L5 level current kandy dy. The conus medullaris remains somewhat high at roughly T11-T12 disc space level. No suspicious si gnal or clumping of lumbosacral nerve roots is seen. The bone marrow signal intensity remains within normal limits. No suspicious spurring is noted. Axial images show the T12-L1, L1-L2, and L2-L3 levels all to remain within normal limits. Axial images at the L3-L4 level show lobulated posterior disc protrusion effacing the anterior thecal sac, bilateral neural foramina are patent. No significant change from prior. Axial images at L4-L5 level show [id number] broad-based left paracentral disc protrusion facing anterior thecal sac and mild facet arthropathy bilaterally. Bilateral neural foramina are patent. Axial images at L5-S1 level redemonstrate mild facet arthropathy bilaterally. No suspicious retroperitoneal findings are seen. IMPRESSION: Mild Degenerative changes in the mid to lower lumbar spine as detailed above. Only slight degenerative progression from 2018 MRI noted.
== END | disposition home or self-care (01) ==
LOC: RADMRIMAIN 09:15
PROVIDERS: ATTEND Orthopaedic Surgery
DX: M47.26 Other spondylosis with radiculopathy, lumbar region (principal)
CPT/HCPCS: 72148

== ENCOUNTER → 2022-01-10 | Outpatient (CLI) | payer OTHER ==
[2022-01-10 09:38] VITALS: BP 137/78; PULSE 98; TEMP 97.9
--- NOTE | 2022-01-10 14:38 | P.PAINPG ---
PQRS Measure Charge Sheet Comment: HISTORY OF PRESENT ILLNESS: 31 yr old male as a referral from [facility] presents today w severe and chronic LBP secondary to spondylosis for evaluation. Pt states pain level is at 7/10 in intensity, constant, localized in the BL lower lumbar spine, pinching/ shooting in character w shooting pain towards the LLE>RLE. Pain is provoked by walking/ standing for periods of 30 min or more, bending. Pain is alleviated by PT x 6 wks 1 mo ago, massage integrated w PT, heat, medications ([place]), use of a cane for ambulation, reclining w LEs elevated, repositioning and rest. PMH: MDD PSH: [place], L SI injection (2019), BL RFA L3-L5 (2019) SH: Daily tobacco user, no ETOH abuse, no illicit drug use. FH: Denies All: NKDA Meds: See list REVIEW OF ORGAN SYSTEMS: CONSTITUTIONAL: No fevers or chills. No recent weight loss. NEUROLOGICAL: + numbness and tingling along the distal extremities. No seizure disorders or headaches. MUSCULOSKELETAL: + pain PSYCHIATRIC: Denies current depression or suicidal thoughts. Physical Examinations : Constitutional : Cooperative , not in acute distress . Neurologic : Cranial nerve II to XII intact. No focal neurological deficits. Psychiatric : alert & oriented x 3. Matching mood & appropriate affect. Judgment & insight intact. Musculoskeletal : Cervical Spine Motor strength in the deltoid and biceps: Normal right side. Normal Left side Motor strength biceps and the wrist extensors: Normal right side . Normal left side Motor strength in the triceps muscle: Normal right side. Normal left side Deep tendon reflexes: Normal at the biceps. Normal at Brachioradialis. Normal at triceps Vertebral body tenderness to deep palpation over Cervical facet loading test: positive bilaterally Spurling test: positive bilaterally Neck distraction test: positive bilaterally Delano sign: positive bilaterally Lumbar spine Motor strength lower extremities ,thigh and legs 5/5 Right side , 5/5 Left side Deep tendon reflexes : Normal Knee Jerk. Normal Ankle Jerk Vertebral body tenderness over L4 Lumbar facet Loading Test: positive Right / positive Left Range of motion of the lumbar spine Flexion 30 degrees, extension 10 degrees Straight Leg Raise test: Left/ Right positive at degree Magdi test: positive right / positive left. Severe tenderness over the Sacroiliac joint on the Right / Left sides Gaenslen test: positive bilaterally Seated flexion test: positive bilaterally. Sacral spine : Severe tenderness over the Sacroiliac joint: right side / left side Range of motion: Flexion of the lumbar spine <60 degrees Range of motion: Extension of the lumbar spine <20 degrees Gaenslen's Test positive Neri's Test positive Magdi test: positive right side / left side Thigh Thrust Test Sacral Thrust Test Imaging: MRI without contrast of the lumbar spine from 12/18/21 reviewed Assessment/ Plan : Lumbar DDD, Lumbar spondylosis Recommendation of L TFESI L4-L5. May need a series, up to 3 within a 6 mo period, for optimal pain relief. Risks, benefits of procedure discussed and patient verbalized understanding. Denies aspirin or anti- coagulant use or medical history of diabetes. Protocol for discontinuation/ continuation of medications chepe procedure discussed. All questions answered. I have spent greater than 30 minutes on patient care today. Dr Lyn was available by phone for the evaluation of this patient. The time was used to review the medical records including relevant urine studies and Prescription history (MAPs), review of the available imaging, evaluation and examination of the patient, coordination of care with the medical staff and if applicable referring physicians, as well as creation of the medical record PQRS Narrative: Smoking Status Current every day smoker Hx Alcohol Use (MH) No Home Medications: Ambulatory Orders traZODone HCL 150 mg PO HS 12/25/17 HYDROcodone/APAP 7.5-325MG [[place] 7.5-325] 1 tab PO Q4HR PRN #18 tab 10/13/21 Ibuprofen [Motrin] 600 mg PO Q6HR PRN #30 tab 10/13/21 Venlafaxine HCl ER [Effexor Xr] 37.5 mg PO DAILY 10/13/21 Venlafaxine HCl ER [Effexor Xr] 75 mg PO HS 10/13/21 diazePAM [Valium] 10 mg PO TID 10/13/21 Controlled Substance Measures - Controlled Substance Measures Is patient prescribed a controlled substance at discharge?: No
== END ==
LOC: PNWHC3 09:13
PROVIDERS: ATTEND Specialist
DX: M47.816 Spondylosis without myelopathy or radiculopathy, lumbar region (principal); M51.36 Other intervertebral disc degeneration, lumbar region; F17.200 Nicotine dependence, unspecified, uncomplicated
CPT/HCPCS: 99211

== ENCOUNTER 2022-02-01 08:39 | Day surgery (SDC) | payer OTHER ==
[2022-01-28 12:11] VITALS: BMI 23.7
[2022-02-01 09:02] VITALS: RESP 16; TEMP 98
[2022-02-01] MEDS ORDERED: DEXAMETHASONE SOD PHOSPHATE 10 MG/ML 1 ML VIAL ONE (09:23)
[2022-02-01] MEDS ORDERED: IOPAMIDOL M200 10 ML VIAL ONE (09:23)
--- NOTE | 2022-02-01 09:33 | P.PCN ---
Date of Procedure: 02/01/22 Description of Procedure: PREOPERATIVE DIAGNOSIS: Lumbar radiculopathy POSTOPERATIVE DIAGNOSIS: Lumbar radiculopathy PROCEDURE 1. Transforaminal epidural steroid injection under fluoroscopic guidance left L4-L5 #1 2. Lumbar epidurogram IMAGING Fluoroscopy was used, images where saved to the medical record ANESTHESIA: Local only PROCEDURE DESCRIPTION / TECHNIQUE: The patient was seen and identified in the preoperative area. Risks, benefits, complications, and alternatives were discussed with the patient. The patient agreed to proceed with the procedure and signed the consent, vital signs were stable prior to the procedure. Patient was taken to the OR and time out was completed. The patient was placed in the prone position on procedure table and a pillow was placed under the abdomen to reduce lumbar lordosis. The lumbosacral area was prepped and draped in the usual sterile fashion. Vital signs were closely monitored during the procedure. Conscious sedation was used. Using oblique fluoroscopy, the chin of the "Evans dog" at the pedicle and the skin and deeper tissues just below was localized with 1% lidocaine. Subsequently, a 25-gauge 3.5-inch spinal needle was advanced under a tunneled view fluoroscopic guidance just underneath the chin of the "Evans dog". Under lateral fluoroscopy, the needle was then advanced to the posterior border interforaminal space. After negative aspiration of CSF and blood and with no paresthesias, 1 mL of Omnipaque-240 contrast dye was injected excellent epidurogram. Subsequently, a solution totalling 2ml of dexamethasone and PFNS was injected after negative aspiration (total of 10mg of dexamethasone was used). The needle was removed intact. COMPLICATIONS: None DISPOSITION: The patient was placed in a supine position and transferred to the recovery area in a stable condition for observation. There was no evidence of lower extremity motor or sensory deficit after the procedure. Patient was discharged from the recovery room after meeting discharge criteria. Home discharge instructions were given to the patient by the staff. The patient was reexamined prior to discharge. Follow up as directed.
[2022-02-01 09:51] VITALS: BP 112/70; PULSE 64
--- NOTE | 2022-02-01 10:06 | FL ---
EXAMINATION TYPE: FL guided pain mgmt statistic DATE OF EXAM: 02/01/2022 FLUOROSCOPY Fluoroscopy time of 6 seconds was used during lumbar transforaminal epidural injection. 1 image/s do cument/s the procedure.
== END 2022-02-01 09:51 | disposition home or self-care (01) ==
LOC: ORPAIN 08:39
PROVIDERS: ATTEND Hospitalist
DX: M54.16 Radiculopathy, lumbar region (principal)
CPT/HCPCS: 64483; J1100; Q9966

== ENCOUNTER → 2022-02-16 | Outpatient (CLI) | payer OTHER ==
[2022-02-16 09:24] VITALS: BP 122/71; PULSE 99; RESP 18; TEMP 98.4
--- NOTE | 2022-02-16 14:20 | P.PAINPG ---
Objective - Vital Signs Vital signs: Vital Signs Temp 98.4 F 02/16/22 09:18 Pulse 99 02/16/22 09:18 Resp 18 02/16/22 09:18 BP 122/71 02/16/22 09:18 Pulse Ox 100 02/16/22 09:18 FiO2 Intake & Output 02/15/22 02/16/22 02/16/22 18:59 06:59 18:59 Weight 77.111 kg PQRS Measure Charge Sheet Mode of Arrival: Ambulatory Comment: A 31 yr old male with a history of severe and chronic low back pain secondary to lumbar DDD and spondylosis with facet arthropathy without myelopathy presents today for evaluation s/p L TFESI L4-L5. Pt states he experienced 20 % pain relief x 2-3 wks s/p procedure. Pain level is currently at 9/10 in intensity, constant, localized in lower lumbar spine, achy in character w shooting towards L hip and LLE . Pain is provoked by use of heat, bending, lifting. Pain is alleviated with PT in Nov 2021, home exercise regimen, medications ([place]), topicals, laying supine and rest. Interventional pain procedures completed include L TFESI L4-L5 Patient is currently on [place] from his PCP Patient denies any side effects of the medication(s), denies excessive drowsiness or sleepiness, denies suicidal ideation and reports that the current pain medication is helping to control the pain and improve activities of daily living. Patient denies any motor or sensory deficits. Patient denies any fever or night sweats, denies any change in the bowel movements or urination. Physical Examination: -Constitutional: Cooperative. Not in acute distress . - Neurologic: Cranial nerve II to XII intact. No focal neurological deficits. - Psychatric: Alert & oriented x 3. Matching mood & appropriate affect. Judgment and insight intact. - Musculoskeletal: Cervical spine: Muscle bulk/ tone/ strength in the bilateral upper extremities normal Vertebral body tenderness to palpation over Spurling test positive Distraction test positive Facet loading test positive Thoracic spine Muscle bulk / tone/ strength in the bilateral paraspinal muscles normal Vertebral body tender to palpation over Facet loading test positive Lumbar spine: Motor bulk/ tone/ strength lower extremities , thigh and legs : 5/5 Deep tendon reflexes : Normal Knee Jerk. Normal Ankle Jerk . Vertebral body tenderness to palpation over Lumbar Facet Loading Test positive Straight Leg Raise: positive at 30 degrees right side/ left side Gaenslen's Test positive Sacral spine : Severe tenderness over the Sacroiliac joint: right side / left side Range of motion: Flexion of the lumbar spine <60 degrees Range of motion: Extension of the lumbar spine <20 degrees Gaenslen's Test positive over L Magdi test: positive right side / left side Thigh Thrust Test L side L Sacral Thrust Test Assessment and plan: Chronic low back pain secondary to lumbar degenerative disc disease, spondylosis with facet arthropathy without myelopathy Recommendation of L SI injection. May need a series, up to 4 within a 12 mo period, for optimal pain relief. Risks, benefits of procedure discussed and pt verbalized understanding. Denies anticoagulant use or medical history of diabetes. All patient questions answered I have spent less than 30 minutes on patient care today. Dr Lyn was available by phone for the evaluation of this patient. The time was used to review the medical records including relevant urine studies and Prescription history (MAPs), review of the available imaging, evaluation and examination of the patient, coordination of care with the medical staff and if applicable referring physicians, as well as creation of the medical record - Pain Location Lower Back Non-Pharmacological Interventions: Heat, Home Exercise, Inactivity, Physical Therapy, Position/Reposition, Sitting, Stretching Pharmacological Interventions: Epidural, PRN Medication, Topical Medication PQRS Narrative: Smoking Status Current every day smoker Blood Pressure 122/71 Pain Intensity [Lower Back] 9 Scale Used Numeric (1 - 10) Hx Alcohol Use (MH) No Home Medications: Ambulatory Orders traZODone HCL 150 mg PO HS 12/25/17 HYDROcodone/APAP 7.5-325MG [[place] 7.5-325] 1 tab PO Q4HR PRN #18 tab 10/13/21 Ibuprofen [Motrin] 600 mg PO Q6HR PRN #30 tab 10/13/21 Venlafaxine HCl ER [Effexor Xr] 37.5 mg PO DAILY 10/13/21 Venlafaxine HCl ER [Effexor Xr] 75 mg PO HS 10/13/21 diazePAM [Valium] 10 mg PO TID 10/13/21 Controlled Substance Measures - Controlled Substance Measures Is patient prescribed a controlled substance at discharge?: No
== END ==
LOC: PNWHC3 09:00
PROVIDERS: ATTEND Specialist
DX: M47.816 Spondylosis without myelopathy or radiculopathy, lumbar region (principal); M51.36 Other intervertebral disc degeneration, lumbar region; F17.200 Nicotine dependence, unspecified, uncomplicated
CPT/HCPCS: 99211

== ENCOUNTER 2022-03-08 09:14 | Day surgery (SDC) | payer OTHER ==
[2022-03-08 09:26] VITALS: TEMP 98.1
[2022-03-08] MEDS ORDERED: ROPIVACAINE 5 MG/ML 20 ML AMPULE ONE (09:38)
[2022-03-08] MEDS ORDERED: methylPREDNISolone ACETATE 40 MG/ML 1 ML VIAL ONE (09:38)
[2022-03-08] MEDS ORDERED: IOPAMIDOL M200 10 ML VIAL ONE (09:38)
--- NOTE | 2022-03-08 09:48 | P.PCN ---
Date of Procedure: 03/08/22 Description of Procedure: Procedure: Sacroiliac joint injection left Preoperative diagnosis: Sacroiliitis Postoperative diagnosis: Sacroiliitis Imaging: Fluoroscopy was used, images where saved to the medical record Complications: none ANESTHESIA: Local only Description of the procedure: procedure risk and benefits discussed with the patient, including but not limited, risk of infection and bleeding, and allergic reaction to the medication and incomplete pain relief. Patient agreed and signed consent. Patient was taken to the room and placed in a prone position. Chlorhexidine was used to cleanse the skin. Under sterile conditions patient skin was anesthetized 1% lidocaine. Subcutaneous tissues were also anesthetized with a total 5 mL of 1% lidocaine. After that, a 22-gauge spinal needle was advanced through the anesthetized location under fluoroscopic guidance. Needle was advanced into the inferior portion of the sacroiliac joint. IV contrast was used to confirm spread within the joint. After adequate spread was achieved, 2.5 ML's of 0.5% ropivacaine with 40 mg of depomedrol was injected into the joint (steroid split between both sides if bilateral). Patient tolerated the procedure well. Sent to the recovery room in stable condition. Patient will follow up as directed.
--- NOTE | 2022-03-08 09:59 | FL ---
Intraoperative/procedural fluoroscopic services were provided for left SI joint injection. Total fluo roscopy time is 7 seconds with a total of 1 submitted image to PACS. Please see the operative note fo r further details.
[2022-03-08 10:08] VITALS: BP 133/72; PULSE 79; RESP 16
== END 2022-03-08 10:11 | disposition home or self-care (01) ==
LOC: ORPAIN 09:14
PROVIDERS: ATTEND Hospitalist
DX: M46.1 Sacroiliitis, not elsewhere classified (principal)
CPT/HCPCS: 27096; J1030; Q9966; J2795

== ENCOUNTER → 2022-03-23 | Outpatient (CLI) | payer OTHER ==
[2022-03-23 08:52] VITALS: BP 110/76; PULSE 112; RESP 18; TEMP 98
--- NOTE | 2022-03-23 14:13 | P.PAINPG ---
PQRS Measure Charge Sheet Comment: A 31 yr old male with a history of severe and chronic low back pain x 7 mo secondary to lumbar DDD and spondylosis with facet arthropathy without myelopathy presents today for evaluation s/p L SI injection. Pt states he experienced 0 % pain relief x 2 wks s/p procedure. Pain level is provoked at 10 /10 in intensity, constant, localized in the lumbar spine, sore, sharp in character w shooting towards the L hip, LLE. Pain is provoked by walking for periods of 15 min or more. Pain is alleviated with use of a cane for ambulatory assistance, PT in Nov 2021 which was ineffective, heat, ice, medications ([place]), topical hemp/ lidocaine, stretching, THC products, repositioning and rest. Pt states he's had an ablation done of his lumbar spine at his hospital approx 3 yrs ago. Is considering PNS trial. Interventional pain procedures completed include L SI injection x1, L TFESI L4- L5 x1 Patient is currently on [place] from his PCP Patient denies any side effects of the medication(s), denies excessive drowsiness or sleepiness, denies suicidal ideation and reports that the current pain medication is helping to control the pain and improve activities of daily living. Patient denies any motor or sensory deficits. Patient denies any fever or night sweats, denies any change in the bowel movements or urination. Physical Examination: -Constitutional: Cooperative. Not in acute distress . - Neurologic: Cranial nerve II to XII intact. No focal neurological deficits. - Psychatric: Alert & oriented x 3. Matching mood & appropriate affect. Judgment and insight intact. - Musculoskeletal: Cervical spine: Muscle bulk/ tone/ strength in the bilateral upper extremities normal Vertebral body tenderness to palpation over Spurling test positive Distraction test positive Facet loading test positive Thoracic spine Muscle bulk / tone/ strength in the bilateral paraspinal muscles normal Vertebral body tender to palpation over Facet loading test positive Lumbar spine: Motor bulk/ tone/ strength lower extremities , thigh and legs : 5/5 Deep tendon reflexes : Normal Knee Jerk. Normal Ankle Jerk . Vertebral body tenderness to palpation over Lumbar Facet Loading Test positive over L L4-L5, L5-S1 Straight Leg Raise: positive at 30 degrees right side/ left side Gaenslen's Test positive Sacral spine : Severe tenderness over the Sacroiliac joint: right side / left side Range of motion: Flexion of the lumbar spine <60 degrees Range of motion: Extension of the lumbar spine <20 degrees Gaenslen's Test positive Magdi test: positive right side / left side Thigh Thrust Test Sacral Thrust Test Assessment and plan: Chronic low back pain secondary to lumbar degenerative disc disease, spondylosis with facet arthropathy without myelopathy Recommendation of PNS trial. Script for behavioral health provided re: clearance, G89.4, G90.522. May return to clinic within 4 wks. Risks, benefits of procedure discussed and pt verbalized understanding. All patient questions answered I have spent less than 30 minutes on patient care today. Dr Lyn was available by phone for the evaluation of this patient. The time was used to review the medical records including relevant urine studies and Prescription history (MAPs), review of the available imaging, evaluation and examination of the patient, coordination of care with the medical staff and if applicable referring physicians, as well as creation of the medical record PQRS Narrative: Smoking Status Current every day smoker Hx Alcohol Use (MH) No Home Medications: Ambulatory Orders traZODone HCL 150 mg PO HS 12/25/17 HYDROcodone/APAP 7.5-325MG [[place] 7.5-325] 1 tab PO Q4HR PRN #18 tab 10/13/21 Venlafaxine HCl ER [Effexor Xr] 37.5 mg PO DAILY 10/13/21 Venlafaxine HCl ER [Effexor Xr] 75 mg PO HS 10/13/21 diazePAM [Valium] 10 mg PO TID 10/13/21 Unk Yfn Multi Vit Gummie 2 tab PO DAILY 03/03/22 Controlled Substance Measures - Controlled Substance Measures Is patient prescribed a controlled substance at discharge?: No
== END ==
LOC: PNWHC3 08:17
PROVIDERS: ATTEND Specialist
DX: M47.816 Spondylosis without myelopathy or radiculopathy, lumbar region (principal); M51.36 Other intervertebral disc degeneration, lumbar region; F17.200 Nicotine dependence, unspecified, uncomplicated
CPT/HCPCS: 99211

== ENCOUNTER 2024-09-13 14:40 | Emergency (ER) | payer BC, OTHER ==
[2024-09-13 14:45] VITALS: TEMP 98.2
[2024-09-13 15:24] VITALS: RESP 16
--- NOTE | 2024-09-13 15:46 | ED ---
General Adult HPI - General Chief complaint: Extremity Problem,Nontraumatic Stated complaint: Post op complications, left leg circulation Time Seen by Provider: 09/13/24 14:59 Source: patient Mode of arrival: ambulatory Limitations: no limitations - History of Present Illness Initial comments: 33-year-old male past medical history of chronic back pain presenting today for left lower extremity being colder to the touch than the right lower extremity after recent SI joint injection. Injection was done at [facility]. The symptoms started afternoon with the left leg feeling colder than the right, numbness from the knee down and decreased strength. Patient also endorses some difficulty emptying his bladder. States that this has happened in the past however got worse since his injection. Endorses pain at the injection worse than he has had with prior SI joint injections. Denies injury/fals. Denies chills or abdominal pain. States he has chest tightness but otherwise denies difficulty in breathing. Denies hemoptysis, recent travel surgery or hospitalizations. Does vape but does not smoke cigarettes. Not hormone repl acement therapy, no history of blood clots or clotting disorders. No hx IVDU or malignancy. - Related Data Home Medications Medication Instructions Recorded Confirmed traZODone HCL 150 mg PO HS 12/25/17 04/28/22 Venlafaxine HCl ER [Effexor Xr] 37.5 mg PO DAILY 10/13/21 04/28/22 Venlafaxine HCl ER [Effexor Xr] 75 mg PO HS 10/13/21 04/28/22 diazePAM [Valium] 10 mg PO TID 10/13/21 04/28/22 Unk Yfn Multi Vit Gummie 2 tab PO DAILY 03/03/22 04/28/22 Previous Rx's Medication Instructions Recorded HYDROcodone/APAP 7.5-325MG [[place] 1 tab PO Q4HR PRN #18 tab 10/13/21 7.5-325] Cyclobenzaprine [Flexeril] 10 mg PO TID #30 tab 05/03/22 Gabapentin [Neurontin] 300 mg PO TID #90 cap 05/03/22 HYDROcodone/APAP 7.5-325MG [[place] 1 tab PO Q6HR PRN #36 tab 05/03/22 7.5-325] Sennosides/Docusate Sodium [Senna 1 each PO DAILY #20 cap 05/03/22 Plus 8.6-50 mg Softgel] cefaDROXiL [Duricef] 500 mg PO Q12HR 5 Days #10 cap 05/03/22 Pregabalin [Lyrica] 200 mg PO BID 3 Days #6 cap 09/13/24 predniSONE [Deltasone] 20 mg PO BID 5 Days #10 tab 09/13/24 Allergies Allergy/AdvReac Type Severity Reaction Status Date / Time No Known Allergies Allergy Verified 09/13/24 14:45 Review of Systems ROS Statement: Those systems with pertinent positive or pertinent negative responses have been documented in the HPI. ROS Other: All systems not noted in ROS Statement are negative. Past Medical History Past Medical History: No Reported History Additional Past Medical History / Comment(s): pain lower back radiating left side, radiating pain and N/T left leg, History of Any Multi-Drug Resistant Organisms: None Reported Past Surgical History: Orthopedic Surgery Additional Past Surgical History / Comment(s): hydrocele, rt knee scope, PAIN CLINIC PROCEDURES Past Anesthesia/Blood Transfusion Reactions: No Reported Reaction Past Psychological History: Bipolar Smoking Status: Vaper - Past Family History Mother Family Medical History: No Reported History General Exam - General Exam Comments Initial Comments: PE: CONSTITUTIONAL: No apparent distress, well appearing SKIN: Warm, dry, no jaundice, hives or petechiae, no erythema overlying left SI joint EYES: Pupils are equally round, extraocular movements intact without nystagmus, clear conjunctiva, non-icteric sclera HENT: Normocephalic, atraumatic, moist mucus membranes, oropharynx clear without exudates NECK: , Full range of motion, normal appearance PULMONARY: Clear to auscultation without wheezes, rhonchi, or rales, normal excursion, no accessory muscle use and no stridor CARDIOVASCULAR: Regular rate, rhythm, normal S1 and S2. No appreciated murmurs, rubs or gallops. Strong radial and DP pulses with intact distal perfusion. No lower extremity edema. 2+ equal DP pulses bilaterally, LLE sightly cooler to touch than RLE GASTROINTESTINAL: [soft, active bowel sounds throughout, non-tender, non- distended, no palpable masses, no rebound or guarding. No hepatosplenomegaly. Rectal exam performed with NICHOL Lopez at bedside, excellent rectal tone MUSCULOSKELETAL: Extremities have no gross deformity, no edema, redness, or swelling. No calf swelling Mild tenderness to palpation over injection site without fluctuance or erythema, no midline spinal TTP, LE are atraumatic NEUROLOGIC:_a/o x 3, GCS 15, normal mentation and speech. No focal neurologic deficits, 4/5 strength LLE, 5/5 strength RLE, decreased sensation to light touch from knee down on LLE, compared to right, sensation intact and equal proximal bilateral LE Left lower extremity is cooler to the touch than right lower extremity however 2+ dorsalis pedis pulses palpated bilaterally decreased sensation to light touch from knee down compared to right, excellent rectal tone PSYCHIATRIC:_normal mood and affect, thought process is clear and linear Limitations: no limitations Course Vital Signs 09/13/24 09/13/24 09/13/24 14:42 15:23 17:00 Temperature 98.2 F Pulse Rate 76 66 60 Respiratory 18 16 20 Rate Blood Pressure 166/97 154/93 130/84 O2 Sat by Pulse 100 98 98 Oximetry 09/13/24 09/13/24 18:00 19:03 Temperature Pulse Rate 54 L 65 Respiratory 16 16 Rate Blood Pressure 97/51 130/65 O2 Sat by Pulse 99 98 Oximetry EKG Findings - EKG Comments: EKG Findings:: Sinus bradycardia, rate 56 beats minute, intervals within acceptable limits, no significant ST elevations or depressions, no arrhythmia, no Brugada pattern or delta waves Medical Decision Making - Medical Decision Making Was pt. sent in by a medical professional or institution (, PA, LURER, urgent care, hospital, or half-way...) When possible be specific @ -Patient sent in by his neurologist Did you speak to anyone other than the patient for history (EMS, parent, family, police, friend...)? What history was obtained from this source @ -No Did you review nursing and triage notes (agree or disagree)? Why? @ -I reviewed nursing and triage notes Were old charts reviewed (outside hosp., previous admission, EMS record, old EKG, old radiological studies, urgent care reports/EKG's, half-way records)? Report findings @ -Medical records reviewed Differential Diagnosis (chest pain, altered mental status, abdominal pain women, abdominal pain men, vaginal bleeding, weakness, fever, dyspnea, syncope, headache, dizziness, GI bleed, back pain, seizure, CVA, palpatations, mental health, musculoskeletal)? @ -Differential diagnosis remains broad however top considerations include radiculopathy or neuropathic pain from joint injection, vascular injury, cauda equina syndrome, PAD, infection this is not all inclusive list Patient has excellent rectal tone, postvoid residual bladder scan showed 0 cc in the bladder, no saddle anesthesia, no midline spinal tenderness, no fevers I do not feel further workup is indicated for cauda equina syndrome at this point EKG interpreted by me (3pts min.). @ -As above X-rays interpreted by me (1pt min.). @Reviewed chest x-ray see no evidence of cardiomegaly, pneumothorax or consolidations CT interpreted by me (1pt min.). Personally reviewed CT scan I see no evidence of occlusion I agree with r adiologist interpretation CT angiogram showed no fluid collection near the SI joints, no definitive vascular occlusion, "however there is poor visualization of the bilateral lower extremity arterial vasculature involving the bilateral anterior tibial posterior tibial and peroneal arteries, likely due to contrast bolus timing". U/S interpreted by me (1pt. min.). @ -None done What testing was considered but not performed or refused? (CT, X-rays, U/S, labs)? Why? @D-dimer and PE study were considered due to patient's endorsed chest tightness however wells score 0, PERC score0 What meds were considered but not given or refused? Why? @ -None Did you discuss the management of the patient with other professionals (professionals i.e. , PA, LURER, lab, RT, psych nurse, outreach and education social worker, lining brusher, teacher, chief wellness officer, director case)? Give summary @ Discussed with Dr. Donald, suspects likely sympathetic block, recommends lyrica 200 mg BID, home on prednisone BID, follow up Monday, return if red flag symptoms Was smoking cessation discussed for >3mins.? @ -No Was critical care preformed (if so, how long)? @ -No Were there social determinants of health that impacted care today? How? (Homeles sness, low income, unemployed, alcoholism, drug addiction, transportation, low edu. Level, literacy, decrease access to med. care, care home, rehab)? @ -No Was there de-escalation of care discussed even if they declined (Discuss DNR or withdrawal of care, Hospice)? @ -No What co-morbidities impacted this encounter? (DM, HTN, Smoking, COPD, CAD, Cancer, CVA, ARF, Chemo, Hep., AIDS, mental health diagnosis, sleep apnea, morbid obesity)? @ -Chronic back pain Was patient admitted / discharged? Hospital course, mention meds given and route, prescriptions, significant lab abnormalities, going to OR and other pertinent info. Discharged- 33-year-old male recent SI joint injection here for his left lower extremity feeling colder to the touch than his right lower extremity after injection. Associated numbness and weakness. Increased pain. Also noted chest tightness during review of systems. Will start with CT angiogram abdomen pelvis with runoff to assess for vascular injury but a low suspicion for this given 2+ DP pulse and <2s cap refill on exam. Ordered pain medications, basic labs in addition to EKG, chest x-ray, troponin, for pt's noted chest tightness, though low suspicion for ACS given description of symptoms, age, lack or risk factors. Postvoid bladder scan showed 0 cc. Labs and imaging reviewed. Grossly within normal limits. Abnormal values not concerning for acute pathology related to presenting complaint. CT did note "poor visualization of the bilateral lower extremity and arterial vasculature" though pt has excellent pulses and cap refill so suspect this is 2/2 contrast time as noted on CT report. Case discussed with Dr. Berger, he suspects likely sympathetic block. Recommend starting on Lyrica twice daily, steroids. Patient will receive 10 mg Decadron here, Lyrica. Updated patient to findings and plan of care. Pain as improved. Patient comfortable with plan for discharge. We discussed signs symptoms to monitor closely for warranting return to the ER such as failure symptoms to improve over the next 48 hours, development of saddle anesthesia, incontinence of stool, urinary retention, uncontrolled pain or fevers. Patient to follow-up with Dr. Donald on Monday. In my medical judgment there is currently no evidence of an immediate life-threa tening or surgical condition. Discharge is therefore indicated at this time. Discharge treatment instructions, follow up instructions, and appropriate emergency department return precautions were discussed with the patient and/or medical decision maker. Patient and/or medical decision maker expressed understanding of and agreed with the treatment plan, follow up instructions, and emergency department return precaution. All patient's and/or medical decision maker's questions were answered. The patient was advised that a small risk still exists that a serious condition could develop and was therefore instructed to return to the ED for any changes in symptoms, persistent symptoms, inability to obtain proper follow-up or for any further concerns. Patient received verbal and written instructions for this condition. Undiagnosed new problem with uncertain prognosis? @ -No Drug Therapy requiring intensive monitoring for toxicity (Heparin, Nitro, Insulin, Cardizem)? @ -No Were any procedures done? @ -No Diagnosis/symptom? @Left lower extremity paresthesias Acute, or Chronic, or Acute on Chronic? @Acute Uncomplicated (without systemic symptoms) or Complicated (systemic symptoms)? @Complicated Side effects of treatment? @ -No Exacerbation, Progression, or Severe Exacerbation? @ -No Poses a threat to life or bodily function? How? (Chest pain, [place], MA, pneumonia, PE, COPD, DKA, ARF, appy, cholecystitis, CVA, Diverticulitis, Homicidal, Suicidal, threat to staff... and all critical care pts) @ -No - Lab Data Result diagrams: 09/13/24 16:13 09/13/24 16:13 Lab Results 09/13/24 09/13/24 09/13/24 Range/Units 16:13 16:13 16:13 WBC 6.18 (4.50-10.00) 10*3/uL RBC 4.21 L (4.40-5.60) 10*6/uL Hgb 14.4 (13.0-17.0) g/dL Hct 39.2 L (39.6-50.0) % MCV 93.1 (80.0-97.0) fL MCH 34.2 H (27.0-32.0) pg MCHC 36.7 (32.0-37.0) g/dL Plt Count 222 (140-440) 10*3/uL MPV 9.3 L (9.5-12.2) fL Immature Gran % (Auto) 0.6 % Neutrophils % 49.6 % Lymphocytes % 37.7 % Monocytes % 8.3 % Eosinophils % 2.3 % Basophils % 1.5 % Immature Gran # 0.04 (0.00-0.04) 10*3/uL Neutrophils # 3.07 (1.80-7.70) 10*3/uL Lymphocytes # 2.33 (0.90-5.00) 10*3/uL Monocytes # 0.51 (0.20-1.00) 10*3/uL Eosinophils # 0.14 (0.04-0.35) 10*3/uL Basophils # 0.09 (0.00-0.10) 10*3/uL PT 11.1 (10.0-12.5) sec INR 1.0 (<1.2) APTT 24.4 (22.0-30.0) sec Sodium 138 (137-145) mmol/L Potassium 3.9 (3.5-5.1) mmol/L Chloride 102 (98-107) mmol/L Carbon Dioxide 25 (22-30) mmol/L Anion Gap 11 mmol/L BUN 20 (9-20) mg/dL Creatinine 0.62 L (0.66-1.25) mg/dL Est GFR (CKD-EPI)AfAm >90 (>60 ml/min/1.73 sqM) Est GFR (CKD-EPI)NonAf >90 (>60 ml/min/1.73 sqM) Glucose 92 (74-99) mg/dL Calcium 9.7 (8.4-10.2) mg/dL Total Bilirubin 0.7 (0.2-1.3) mg/dL AST 21 (17-59) U/L ALT 15 (4-49) U/L Alkaline Phosphatase 67 (38-126) U/L Troponin I (0.000-0.034) ng/mL C-Reactive Protein <0.5 (<1.0) mg/dL Total Protein 6.7 (6.3-8.2) g/dL Albumin 4.4 (3.5-5.0) g/dL 09/13/24 Range/Units 16:13 WBC (4.50-10.00) 10*3/uL RBC (4.40-5.60) 10*6/uL Hgb (13.0-17.0) g/dL Hct (39.6-50.0) % MCV (80.0-97.0) fL MCH (27.0-32.0) pg MCHC (32.0-37.0) g/dL Plt Count (140-440) 10*3/uL MPV (9.5-12.2) fL Immature Gran % (Auto) % Neutrophils % % Lymphocytes % % Monocytes % % Eosinophils % % Basophils % % Immature Gran # (0.00-0.04) 10*3/uL Neutrophils # (1.80-7.70) 10*3/uL Lymphocytes # (0.90-5.00) 10*3/uL Monocytes # (0.20-1.00) 10*3/uL Eosinophils # (0.04-0.35) 10*3/uL Basophils # (0.00-0.10) 10*3/uL PT (10.0-12.5) sec INR (<1.2) APTT (22.0-30.0) sec Sodium (137-145) mmol/L Potassium (3.5-5.1) mmol/L Chloride (98-107) mmol/L Carbon Dioxide (22-30) mmol/L Anion Gap mmol/L BUN (9-20) mg/dL Creatinine (0.66-1.25) mg/dL Est GFR (CKD-EPI)AfAm (>60 ml/min/1.73 sqM) Est GFR (CKD-EPI)NonAf (>60 ml/min/1.73 sqM) Glucose (74-99) mg/dL Calcium (8.4-10.2) mg/dL Total Bilirubin (0.2-1.3) mg/dL AST (17-59) U/L ALT (4-49) U/L Alkaline Phosphatase (38-126) U/L Troponin I <0.012 (0.000-0.034) ng/mL C-Reactive Protein (<1.0) mg/dL Total Protein (6.3-8.2) g/dL Albumin (3.5-5.0) g/dL Disposition Clinical Impression: Left leg paresthesias Disposition: HOME SELF-CARE Condition: Good Additional Instructions: Every disease is a spectrum and a small chance still exists that a serious condition could develop, for this reason, please monitor yourself closely for new, changing or worsening symptoms, symptoms that persist beyond 48 hours, any of the symptoms listed below, numbness between your legs, incontinence of stool, difficulty urinating, fevers, uncontrollable pain fever, inability to tolerate/keep down fluids or your medications, inability to follow up with ou tpatient providers as instructed and should you experience these symptoms or should you have any further concerns for your wellbeing please return to the ED or call 911 immediately. Return to the emergency department if you develop constipation, urinary retention, loss of bowel or bladder function, numbness or tingling into the rectum, groin, or develop fevers and chills Please call Dr. Donald's office Monday for follow-up appointment on Monday. PLEASE call your primary care physician as soon as possible to arrange / discuss plan for followup appointment. Appointment in the next 1-3 days is strongly encouraged if possible. PLEASE let us know here before you leave if there is anything further we can do to be of any assistance. Take care and feel Better! Prescriptions: predniSONE [Deltasone] 20 mg PO BID 5 Days #10 tab Pregabalin [Lyrica] 200 mg PO BID 3 Days #6 cap Is patient prescribed a controlled substance at d/c from ED?: Yes When asked, does pt state using other controlled substances?: Yes If prescribed controlled substance>3 days was MAPS reviewed?: Yes Referrals: Nonstaff,Physician [Primary Care Provider] - 1-2 days
[2024-09-13] MEDS: ONDANSETRON 4 MG/2 ML VIAL IVP STA (16:28)
[2024-09-13] MEDS: MORPHINE SULFATE 4 MG/ML SYRINGE IVP STA (16:28)
[2024-09-13] MEDS: ORPHENADRINE 30 MG/ML 2 ML VIAL IVP STA (16:28)
[2024-09-13 16:37] LABS: Basophils # (A) 0.09 10*3/uL (0.00-0.10); Basophils % (A) 1.5 %; Eosinophils # (A) 0.14 10*3/uL (0.04-0.35); Eosinophils % (A) 2.3 %; HCT 39.2 % (39.6-50.0); HGB 14.4 g/dL (13.0-17.0); Lymphocytes # (A) 2.33 10*3/uL (0.90-5.00); Lymphocytes % (A) 37.7 %; MCH 34.2 pg (27.0-32.0); MCHC 36.7 g/dL (32.0-37.0); MCV 93.1 fL (80.0-97.0); Monocytes # (A) 0.51 10*3/uL (0.20-1.00); Monocytes % (A) 8.3 %; Neutrophils # (A) 3.07 10*3/uL (1.80-7.70); Neutrophils % (A) 49.6 %; Platelet Count 222 10*3/uL (140-440); RBC 4.21 10*6/uL (4.40-5.60); RDW 10.9 % (11.5-14.5); WBC 6.18 10*3/uL (4.50-10.00)
[2024-09-13 16:46] LABS: INR 1.0 (<1.2); Partial Thromboplastin Time 24.4 sec (22.0-30.0); Prothrombin Time 11.1 sec (10.0-12.5)
[2024-09-13 16:57] LABS: ALT 15 U/L (4-49); AST 21 U/L (17-59); African American GFR (CKD) >90 (>60 ml/min/1.73 sqM); Albumin 4.4 g/dL (3.5-5.0); Alkaline Phosphatase 67 U/L (38-126); Anion Gap 11 mmol/L; Blood Urea Nitrogen 20 mg/dL (9-20); Calcium 9.7 mg/dL (8.4-10.2); Carbon Dioxide 25 mmol/L (22-30); Chloride 102 mmol/L (98-107); Glucose 92 mg/dL (74-99); Non-African American GFR(CKD) >90 (>60 ml/min/1.73 sqM); Potassium 3.9 mmol/L (3.5-5.1); Sodium 138 mmol/L (137-145); Total Protein 6.7 g/dL (6.3-8.2)
--- NOTE | 2024-09-13 17:32 | XR ---
EXAMINATION TYPE: XR chest 2V DATE OF EXAM: 09/13/2024 5:29 PM COMPARISON: None TECHNIQUE: XR chest 2V Frontal and lateral views of the chest. CLINICAL INDICATION:Male, 33 years old with history of chest tightness; FINDINGS: Lungs/Pleura: There is no evidence of pleural effusion, focal consolidation, or pneumothorax. Pulmonary vascularity: Unremarkable. Heart/mediastinum: Cardiomediastinal silhouette is unremarkable. Musculoskeletal: No acute osseous pathology. Thoracic spinous stimulator leads. IMPRESSION: No acute cardiopulmonary disease/process. [facility], , 09/13/2024 5:30 PM
--- NOTE | 2024-09-13 17:52 | CT ---
EXAMINATION TYPE: CT angio abd aorta w/Runoff CT DLP: 2126.5 mGycm, Automated exposure control for dose reduction was used. DATE OF EXAM: 09/13/2024 5:40 PM COMPARISON:CT lumbar spine 10/13/2021, MRI lumbar spine 12/18/2021 CLINICAL INDICATION:Male, 33 years old with history of left SI joint inject. LLE cold, numb weak; Pt sent by neurologist, SI joint injection the other day and is now having cold extremity and tingling i n leg. TECHNIQUE: Multiple thin slice sub-millimeter images were obtained through the abdomen, pelvis, and l ower extremities before and after administration of contrast. Patient was given Isovue 370, 100 cc i ntravenously. 3-D reconstructed images and maximum intensity projection images were obtained of the abdomen, pelvis, and lower extremities. FINDINGS: CTA Abdomen and pelvis: The abdominal aorta does not demonstrate aneurysmal dilatation. No atheroscl erotic plaquing is identified within the abdominal aorta. The origins of the superior mesenteric art ar, renal arteries, inferior mesenteric artery, and celiac axis are patent. The iliac vessels are n ormal in morphology. Minimal calcified plaque within the right common iliac artery. CTA Lower extremities: Right: The common femoral and superficial femoral arteries are patent. The popliteal artery is patent . Poor visualization of the anterior and posterior tibial arteries and peroneal artery distally. Left: The common femoral and superficial femoral arteries are patent. The popliteal artery is patent . Poor visualization of the anterior and posterior tibial arteries and peroneal artery distally. VISCERA: The liver, spleen, adrenal glands, kidneys, pancreas, and gallbladder are not optimally enha nced due the arterial phase utilized. LIVER: Left hepatic lobe subcentimeter cyst. GALLBLADDER AND BILE DUCTS: Unremarkable. PANCREAS: Unremarkable. SPLEEN: Unremarkable. ADRENAL GLANDS: Unremarkable. KIDNEYS AND URETERS: No evidence of hydronephrosis or renal calculus. The ureters are unremarkable. PELVIS BLADDER: Unremarkable REPRODUCTIVE: Unremarkable. ABDOMEN & PELVIS STOMACH AND BOWEL: No remarkable. No evidence of bowel obstruction. PERITONEUM: No evidence of pneumoperitoneum or free fluid. VASCULATURE: No evidence of aortic aneurysm. MUSCULOSKELETAL: No acute osseous abnormalities. Thoracic stimulator leads identified and entered the spinal canal at the T12-L1 interspinous space. The stimulator power pack is within the left posterio r lower back subcutaneous tissues. The SI joints appear intact without fluid collection identified. LYMPH NODES: No evidence for lymphadenopathy. SOFT TISSUE/ABDOMINAL WALL: Unremarkable IMPRESSION: No definitive evidence of vascular occlusion however there is poor visualization of the bilateral low er extremity arterial vasculature involving the bilateral anterior tibial, posterior tibial and peron eal arteries. This is likely due to contrast bolus timing. No significant atherosclerotic disease maria de jesus ntified within the visualized arterial vasculature. [facility], , 09/13/2024 5:50 PM
[2024-09-13] MEDS: PREGABALIN 100 MG CAP PO STA (18:45)
[2024-09-13] MEDS: DEXAMETHASONE SOD PHOSPHATE 10 MG/ML 1 ML VIAL IVP STA (18:46)
[2024-09-13 19:04] VITALS: BP 130/65; PULSE 65
== END 2024-09-13 19:05 | disposition home or self-care (01) ==
LOC: EC 14:40
DX: G89.29 Other chronic pain (principal); R20.2 Paresthesia of skin; M54.9 Dorsalgia, unspecified; F17.290 Nicotine dependence, other tobacco product, uncomplicated
CPT/HCPCS: 51798; 36415; 93005; 80053; 84484; 85025; 85610; 85730; 86140; 71046; 75635; 99285; 96374; 96375; J2270; J1100; J2360; J2405; Q9967